=== PATIENT | male | born 1975 | race Caucasian/White ===

== ENCOUNTER 2018-08-07 12:52 | Inpatient (IN) | payer MEDICAID ==
[~2018-08-07] VITALS: Ht 170.2 cm; Wt 87.2 kg
[2018-08-07] MEDS ORDERED: SODIUM CHLORIDE 0.9% 1L BAG IV* STA ×2 (13:07)
[2018-08-07] MEDS ORDERED: CEFTRIAXONE 1 GM/50 ML (PMX) 50 ML IVPB STA (13:07)
[2018-08-07] MEDS ORDERED: ACETAMINOPHEN 500 MG TAB PO STA (13:08)
--- NOTE | 2018-08-07 14:57 | ERD ---
ER Documentation Chief Complaint Chief Complaint FEVER, BODYACHES, DIARRHEA, NAUSEA, PAIN WITH URINATION X2 DAYS HPI 43-year-old male presents the emergency department complaining of fevers, chills, difficulty urinating. Patient states that for the last 2 days has had the above symptoms. He has had dysuria and urinary frequency associated with a nonspecific abdominal pain. He had occasional loose stool and diarrhea but no blood in his stool. He has a lower abdominal discomfort associated with the symptoms. Today he felt like he had a fever, weakness and body aches and came to the emergency room for evaluation. ROS All systems reviewed and are negative except as per history of present illness. Medications Home Meds No Active Prescriptions or Reported Meds Allergies Allergies: Coded Allergies: No Known Allergy (Unverified , 08/07/18) PMhx/Soc Medical and Surgical Hx: pt denies Medical Hx, pt denies Surgical Hx Hx Alcohol Use: No Hx Substance Use: No Hx Tobacco Use: No Smoking Status: Never smoker FmHx Noncontributory for chief complaint Physical Exam Vitals Vital Signs Date Temp Pulse Resp B/P (MAP) Pulse Ox O2 O2 Flow FiO2 Time Delivery Rate 08/07/18 102.1 134 19 156/96 99 12:59 (116) Physical Exam GENERAL: Ill-appearing male no CVA tenderness HEENT: Pupils equal, round, and reactive to light. EOMI. There is no scleral icterus. NECK: C-spine is soft and supple, there is no meningismus. There is no cervical lymphadenopathy. LUNGS: Clear to auscultation bilaterally. There are no rales, wheezes or rh onchi. HEART: Regular rate and rhythm, no murmurs, clicks, rubs or gallops. ABDOMEN: Soft, non-tender, non-distended. There are bowel sounds in all four quadrants. No rebound or guarding. No CVA tenderness EXTREMITIES: There is no peripheral cyanosis or edema. No focal swelling or erythema. NEURO: The patient moves all four extremities with 5/5 strength. Cranial nerves II - XII are intact. Normal gait. Alert and oriented SKIN: There is no apparent rash or petechiae. HEME/LYMPHATIC: There is no evidence of excessive bruising or lymphedema. PSYCHIATRIC: The patient does not appear anxious or depressed. Result Diagram: 08/07/18 1314 08/07/18 1314 Results 24 hrs Laboratory Tests Test 08/07/18 13:14 08/07/18 13:16 White Blood Count 11.8 10^3/ul Red Blood Count 5.33 10^6/ul Hemoglobin 15.0 g/dl Hematocrit 44.5 % Mean Corpuscular Volume 83.5 fl Mean Corpuscular Hemoglobin 28.1 pg Mean Corpuscular Hemoglobin Concent 33.7 g/dl Red Cell Distribution Width 12.7 % Platelet Count 290 10^3/UL Mean Platelet Volume 9.7 fl Immature Granulocytes % 0.700 % Neutrophils % 80.2 % Lymphocytes % 6.7 % Monocytes % 11.8 % Eosinophils % 0.1 % Basophils % 0.5 % Nucleated Red Blood Cells % 0.0 /100WBC Immature Granulocytes # 0.080 10^3/ul Neutrophils # 9.4 10^3/ul Lymphocytes # 0.8 10^3/ul Monocytes # 1.4 10^3/ul Eosinophils # 0.0 10^3/ul Basophils # 0.1 10^3/ul Nucleated Red Blood Cells # 0.0 10^3/ul Prothrombin Time 13.8 Sec Prothrombin Time Ratio 1.1 INR International Normalized Ratio 1.05 Activated Partial Thromboplast Time 29.1 Sec Urine Color ELVIA Urine Clarity CLOUDY Urine pH 6.0 Urine Specific [place] 1.018 Urine Ketones NEGATIVE mg/dL Urine Nitrite NEGATIVE mg/dL Urine Bilirubin NEGATIVE mg/dL Urine Urobilinogen NEGATIVE mg/dL Urine Leukocyte Esterase 3+ Lillian/ul Urine Microscopic RBC > 182 /HPF Urine Microscopic WBC > 182 /HPF Urine Transitional Epithelial Cells FEW /HPF Urine Bacteria FEW /HPF Urine Mucus FEW /HPF Urine Hemoglobin 3+ mg/dL Urine Glucose NEGATIVE mg/dL Urine Total Protein 2+ mg/dl Sodium Level 141 mmol/L Potassium Level 4.1 mmol/L Chloride Level 102 mmol/L Carbon Dioxide Level 25 mmol/L Anion Gap 14 Blood Urea Nitrogen 11 mg/dl Creatinine 0.94 mg/dl Est Glomerular Filtrat Rate mL/min > 60 mL/min Glucose Level 131 mg/dl Calcium Level 9.7 mg/dl Total Bilirubin 0.7 mg/dl Direct Bilirubin 0.00 mg/dl Indirect Bilirubin 0.7 mg/dl Aspartate Amino Transf (AST/SGOT) 209 IU/L Alanine Aminotransferase (ALT/SGPT) 468 IU/L Alkaline Phosphatase 130 IU/L Troponin I < 0.012 ng/ml Total Protein 8.2 g/dl Albumin 4.6 g/dl Globulin 3.60 g/dl Albumin/Globulin Ratio 1.27 POC Venous Lactate 1.5 mmol/L Current Medications Medications Dose Sig/Karla Start Time Status Last (Trade) Ordered Route PRN Stop Time Admin Dose Reason Admin Sodium 2,620 ml BOLUS OVER 2 08/07/18 DC 08/07/18 Chloride HOURS STAT 13:07 13:25 (NS) IV* 08/07/18 13:08 Sodium 1,980 ml BOLUS OVER 2 08/07/18 DC Chloride HOURS STAT 13:07 (NS) IV* 08/07/18 13:08 Ceftriaxone 50 ml @ ONCE STAT 08/07/18 DC 08/07/18 Sodium 100 mls/hr IVPB 13:07 13:22 08/07/18 13:36 1,000 mg ONCE STAT 08/07/18 DC 08/07/18 Acetaminophen PO 13:08 13:22 (Tylenol 08/07/18 13:09 Tab) Procedures/MDM Patient was taken to a room, seen and evaluated. Comfort measures were initiated. Diagnostic tests were ordered and reviewed. 3 LEAD RHYTHM STRIP: Sinus tachycardia EK lead EKG reviewed by myself: Sinus tachycardia Normal [place] and intervals No ST elevation, depression, or T wave inversion Impression: Normal EKG RADIOLOGY: Reviewed with the radiologist CONSULTATION: Hospitalist was notified for admission Dr. Patel was consulted as a urologist REEVALUATION: 1500: Diagnostic tests were appreciated. Patient had much improvement with fluids and antibiotics. Serial examinations of his abdomen remained benign. MEDICAL DECISION MAKIN-year-old male presents with a urinary tract inf ection. This appears to be related to an underlying urologic abnormality including a likely passed kidney stone. Although the patient's lactate is less than 2 and he does not appear to be severely septic, I believe this is a high risk infection. Patient will be admitted for IV fluids, IV antibiotics and further supportive measures. Departure Diagnosis: Primary Impression: Urinary tract infection Condition: ZAHRAA Tidwell Aug 07, 2018 14:57
[2018-08-07] MEDS ORDERED: ONDANSETRON 4 MG INJ IV PRN (15:00)
--- NOTE | 2018-08-07 15:58 | HP ---
Date/Time of Note Date/Time of Note DATE: 08/07/18 TIME: 15:42 Assessment/Plan VTE Prophylaxis SCD applied (from Nsg): Yes Pharmacological prophylaxis: NA/contraindicated Pharm contraindication: low risk/ambulating Lines/Catheters IV Catheter Type (from Nrsg): Saline Lock Assessment/Plan Assessment/Plan 43 yo man no PMH presents with UTI #UTI - Dysuria and leuk esterase on UA. - Very low risk of drug resistance. No recent hospital exposure or antibiotics. - Ceftriaxone IV for now. - CT negative for structural abnormalities. No crystals on UA. - If improved tomorrow, discharge on levofloxacin. Otherwise wait for urine culture. DVT: SCDs GI: None Result Diagram: 08/07/18 1314 08/07/18 1314 HPI/ROS Admit Date/Time Admit Date/Time 07 August 2018 Hx of Present Illness Mr. Denton Grover is a 43 yo man no PMH who presents with dysuria and diarrhea. He was in his usual state of health until Wednesday (3 days [employer]) when he developed dysuria. Described a burning sensation running down the middle of his penis with the urine stream. Also complains of "oily urine" which may be pyuria. Since then has had fevers, night sweats, and anorexia. Mild nausea. No vomiting. He denies recent hospitalization or other health care exposure; recent antibiotics. No history of kidney stones. Never had a urologic procedure. In the ED he was febrile to 102.1, P 130s, BP 156/96. WBC 11.8. CT abdomen shows R hydronephrosis and R perinephric fat stranding. ROS Denies recent fatigue, weight loss, headache, vision changes, dizziness, dysphagia, neck pain/stiffness, dyspnea, cough, chest pain/pressure/palpitations, vomiting, constipation, melena, hematochezia. PMH/Family/Social Past Medical History Medical History: no pertinent history Medications Current Medications Ondansetron HCl (Zofran Inj) 4 mg BRIDGE ORDER PRN IV NAUSEA/VOMITING; Start 08/07/18 at 15:00; Stop 08/08/18 at 14:59 Acetaminophen (Tylenol Tab) 650 mg ER BRIDGE PRN PO .MILD PAIN 1-3 OR TEMP; Start 08/07/18 at 15:00; Stop 08/08/18 at 14:59 Sodium Chloride 1,000 ml @ 75 mls/hr [id number] IV ; Start 08/07/18 at 15:39; Status UNV IV Flush (NS 3 ml) 3 ml PER PROTOCOL IV ; Start 08/07/18 at 16:00; Status UNV Acetaminophen (Tylenol Tab) 650 mg Q6H PRN PO .PAIN 1-3 OR TEMP; Start 08/07/18 at 16:00; Status UNV Coded Allergies: No Known Allergy (Unverified , 08/07/18) Past Surgical History Past Surgical Hx: no surgical history Family History Significant Family History: no pertinent family hx Social History Works as a screenprinter. Alcohol Use: none Smoking Status: Never smoker Drug Use: none Exam/Review of Systems Vital Signs Vitals Vital Signs Date Temp Pulse Resp B/P (MAP) Pulse Ox O2 O2 Flow FiO2 Time Delivery Rate 08/07/18 102.1 134 19 156/96 99 12:59 (116) Exam Exam Gen: Obese man, supine in gurney comfortable appearing. Eyes: PERRL, no icterus. HEENT: Moist mucous membranes, clear oropharynx Neck: Supple, no lymphadenopathy or masses. Card: Regular rate and rhythm, very mild 1/6 systolic ejection murmur. Pulm: Clear to auscultation bilaterally Abd: Soft, nontender throughout, nondistended. No hepatosplenomegaly. No CVA tenderness. Ext: No cyanosis/clubbing/edema Skin: warm, dry, well perfused. GEORGIANA MATHEWS MD Aug 07, 2018 15:58
[2018-08-07] MEDS ORDERED: NACL 0.9% 3 ML SYG IV SCH (16:00)
[2018-08-07 20:00] VITALS: BP 137/90; PULSE 104; RESP 18
[2018-08-07] MEDS: ACETAMINOPHEN 325 MG TAB PO PRN (20:52)
[2018-08-07] MEDS: SOD CHLORIDE 0.9% 1,000 ML IV SCH (20:53)
[2018-08-07 21:21] VITALS: Ht 170.2 cm; Wt 87.2 kg
[2018-08-08 02:04] VITALS: BP 148/89; PULSE 101; RESP 18
[2018-08-08] MEDS: ACETAMINOPHEN 325 MG TAB PO PRN ×3 (02:28→22:05)
[2018-08-08] MEDS: morphine 2 MG INJ IV PRN ×3 (07:35→20:15)
[2018-08-08 08:00] VITALS: BP 156/93; PULSE 98; RESP 18
[2018-08-08] MEDS: SOD CHLORIDE 0.9% 1,000 ML IV SCH ×2 (09:38→18:19)
[2018-08-08] MEDS: CEFTRIAXONE 1 GM/50 ML (PMX) 50 ML IVPB SCH (11:50)
[2018-08-08 14:00] VITALS: BP 176/99; PULSE 111; RESP 19
[2018-08-08] MEDS ORDERED: hydrALAzine 20 MG INJ IV PRN ×2 (15:00→19:00)
[2018-08-08 15:34] VITALS: BP 166/101; RESP 18
[2018-08-08] MEDS ORDERED: POTASSIUM PHOSPHATE 20 MEQ in SOD CHLORIDE 0.9% 250 ML IVPB ONE (17:00)
--- NOTE | 2018-08-08 17:03 | PN ---
Date/Time of Note Date/Time of Note DATE: 08/08/18 TIME: 17:01 Assessment/Plan VTE Prophylaxis Risk score (from Ns)>0 risk: 2 SCD applied (from Ns): Yes Pharmacological prophylaxis: other Lines/Catheters IV Catheter Type (from Nrs): Peripheral IV Assessment/Plan Hospital Course S: Patient still complaining of some dysuria and generalized pain. Had a low- grade temperature earlier today as well. O: VS -see below PE: Gen: Lying in bed, slightly lethargic Eyes: PERRL, no icterus. HEENT: Moist mucous membranes, clear oropharynx Neck: Supple, no lymphadenopathy or masses. Card: Regular rate and rhythm, very mild 1/6 systolic ejection murmur. Pulm: Clear to auscultation bilaterally Abd: Soft, nontender throughout, nondistended. No hepatosplenomegaly. No CVA tenderness. Ext: No cyanosis/clubbing/edema Assessment/Plan: 43 yo man no PMH presents with UTI #UTI-patient still with dysuria and again presented with positive leuk esterase on UA. Urine culture preliminarily positive for gram-negative rods, as well as 1 out of 2 blood cultures- CT negative for structural abnormalities. No crystals on UA. -For now continue ceftriaxone IV for now. -Follow-up final urine and blood culture results DVT: SCDs GI: None Result Diagram: 08/08/18 0722 08/08/18 0722 Results 24hrs Laboratory Tests Test 08/07/18 20:57 08/08/18 07:22 Lactic Acid Level 1.2 White Blood Count 10.7 Red Blood Count 4.73 Hemoglobin 13.6 L Hematocrit 40.3 L Mean Corpuscular Volume 85.2 Mean Corpuscular Hemoglobin 28.8 L Mean Corpuscular Hemoglobin Concent 33.7 Red Cell Distribution Width 12.8 Platelet Count 234 Mean Platelet Volume 10.3 Immature Granulocytes % 0.500 H Neutrophils % 85.3 H Lymphocytes % 4.8 L Monocytes % 9.0 Eosinophils % 0.0 Basophils % 0.4 Nucleated Red Blood Cells % 0.0 Immature Granulocytes # 0.050 H Neutrophils # 9.1 H Lymphocytes # 0.5 L Monocytes # 1.0 H Eosinophils # 0.0 Basophils # 0.0 Nucleated Red Blood Cells # 0.0 Sodium Level 143 Potassium Level 3.8 Chloride Level 104 Carbon Dioxide Level 27 Anion Gap 12 Blood Urea Nitrogen 9 Creatinine 0.82 Est Glomerular Filtrat Rate mL/min > 60 Glucose Level 120 Hemoglobin A1c 5.0 Calcium Level 8.9 Phosphorus Level 2.4 L Magnesium Level 2.0 Total Bilirubin 0.6 Direct Bilirubin 0.00 Indirect Bilirubin 0.6 Aspartate Amino Transf (AST/SGOT) 100 #H Alanine Aminotransferase (ALT/SGPT) 288 H Alkaline Phosphatase 108 Total Protein 6.8 # Albumin 3.5 # Globulin 3.30 H Albumin/Globulin Ratio 1.06 Thyroid Stimulating Hormone (TSH) 0.489 Exam/Review of Systems Exam Vitals Vital Signs Date Temp Pulse Resp B/P (MAP) Pulse Ox O2 O2 Flow FiO2 Time Delivery Rate 08/08/18 98.7 18 166/101 97 Room Air 15:34 (122) 08/08/18 111 14:00 Intake and Output 08/07/18 08/07/18 08/08/18 1515:00 23:00 07:00 IntakeIntake Total 1080 ml OutputOutput Total 600 ml BalanceBalance 480 ml Results Results 24hrs Laboratory Tests Test 08/07/18 20:57 08/08/18 07:22 Lactic Acid Level 1.2 White Blood Count 10.7 Red Blood Count 4.73 Hemoglobin 13.6 L Hematocrit 40.3 L Mean Corpuscular Volume 85.2 Mean Corpuscular Hemoglobin 28.8 L Mean Corpuscular Hemoglobin Concent 33.7 Red Cell Distribution Width 12.8 Platelet Count 234 Mean Platelet Volume 10.3 Immature Granulocytes % 0.500 H Neutrophils % 85.3 H Lymphocytes % 4.8 L Monocytes % 9.0 Eosinophils % 0.0 Basophils % 0.4 Nucleated Red Blood Cells % 0.0 Immature Granulocytes # 0.050 H Neutrophils # 9.1 H Lymphocytes # 0.5 L Monocytes # 1.0 H Eosinophils # 0.0 Basophils # 0.0 Nucleated Red Blood Cells # 0.0 Sodium Level 143 Potassium Level 3.8 Chloride Level 104 Carbon Dioxide Level 27 Anion Gap 12 Blood Urea Nitrogen 9 Creatinine 0.82 Est Glomerular Filtrat Rate mL/min > 60 Glucose Level 120 Hemoglobin A1c 5.0 Calcium Level 8.9 Phosphorus Level 2.4 L Magnesium Level 2.0 Total Bilirubin 0.6 Direct Bilirubin 0.00 Indirect Bilirubin 0.6 Aspartate Amino Transf (AST/SGOT) 100 #H Alanine Aminotransferase (ALT/SGPT) 288 H Alkaline Phosphatase 108 Total Protein 6.8 # Albumin 3.5 # Globulin 3.30 H Albumin/Globulin Ratio 1.06 Thyroid Stimulating Hormone (TSH) 0.489 Medications Medication Current Medications Sodium Chloride 1,000 ml @ 75 mls/hr [id number] IV Last administered on 08/08/18at 09:38; Admin Dose 75 MLS/HR; Start 08/07/18 at 15:39 IV Flush (NS 3 ml) 3 ml PER PROTOCOL IV ; Start 08/07/18 at 16:00 Acetaminophen (Tylenol Tab) 650 mg Q6H PRN PO .PAIN 1-3 OR TEMP Last administered on 08/08/18at 02:28; Admin Dose 650 MG; Start 08/07/18 at 16:00 Ceftriaxone Sodium 50 ml @ 100 mls/hr Q24H IVPB Last administered on 08/08/18at 11:50; Admin Dose 100 MLS/HR; Start 08/08/18 at 12:00 Morphine Sulfate (morphine) 2 mg Q4H PRN IV SEVERE PAIN LEVEL 7-10 Last administered on 08/08/18at 11:50; Admin Dose 2 MG; Start 08/08/18 at 03:30 Potassium Phosphate 20 meq/ Sodium Chloride 254.5455 ml @ 63.636 m... ONCE ONCE IVPB ; Start 08/08/18 at 17:00; Stop 08/08/18 at 20:59 Hydralazine HCl (Apresoline) 10 mg Q4H PRN IV ELEVATED BLOOD PRESSURE; Start 08/08/18 at 19:00; Status DONNY WHITTINGTON Aug 08, 2018 17:03
[2018-08-08 18:00] VITALS: BP 155/98; PULSE 91; RESP 20
[2018-08-08 19:35] VITALS: BP 163/86; PULSE 95; RESP 16
[2018-08-09 02:03] VITALS: BP 108/67; PULSE 90; RESP 17
[2018-08-09] MEDS: SOD CHLORIDE 0.9% 1,000 ML IV SCH ×2 (02:36→21:02)
[2018-08-09 08:04] VITALS: BP 164/103; PULSE 89; RESP 17
[2018-08-09] MEDS: ACETAMINOPHEN 325 MG TAB PO PRN ×2 (11:05→21:02)
[2018-08-09] MEDS: CEFTRIAXONE 1 GM/50 ML (PMX) 50 ML IVPB SCH (11:06)
--- NOTE | 2018-08-09 13:16 | PN ---
Date/Time of Note Date/Time of Note DATE: 08/09/18 TIME: 13:15 Assessment/Plan VTE Prophylaxis Risk score (from Ns)>0 risk: 2 SCD applied (from Ns): Yes Pharmacological prophylaxis: other Lines/Catheters IV Catheter Type (from Nrsg): Peripheral IV Assessment/Plan Hospital Course S: Patient more awake and alert today, per nursing staff. Tolerating diet. No fevers overnight. O: VS -see below PE: Gen: Lying in bed, less lethargic Eyes: PERRL, no icterus. HEENT: Moist mucous membranes, clear oropharynx Neck: Supple, no lymphadenopathy or masses. Card: Regular rate and rhythm, very mild 1/6 systolic ejection murmur. Pulm: Clear to auscultation bilaterally Abd: Soft, nontender throughout, nondistended. No hepatosplenomegaly. No CVA tenderness. Ext: No cyanosis/clubbing/edema Assessment/Plan: 43 yo man no PMH presents with UTI #UTI-patient still with dysuria and again presented with positive leuk esterase on UA. Urine culture positive for> 100,000 E coli CFU's, as well as 1 out of 2 blood cultures for gram (-) rods). CT negative for structural abnormalities. No crystals on UA. -For now continue ceftriaxone IV for now. -Follow-up final blood culture results DVT: SCDs GI: None Result Diagram: 08/08/1872108/08/18 0722 Exam/Review of Systems Exam Vitals Vital Signs Date Temp Pulse Resp B/P (MAP) Pulse Ox O2 O2 Flow FiO2 Time Delivery Rate 08/09/18 98.0 89 17 164/103 97 Room Air 08:04 (123) Intake and Output 08/08/18 08/08/18 08/09/18 1515:00 23:00 07:00 IntakeIntake Total 400 ml 1981.5455 ml 653 ml OutputOutput Total 1300 ml BalanceBalance 400 ml 681.5455 ml 653 ml Medications Medication Current Medications Sodium Chloride 1,000 ml @ 75 mls/hr [id number] IV Last administered on 08/09/18at 02:36; Admin Dose 75 MLS/HR; Start 08/07/18 at 15:39 IV Flush (NS 3 ml) 3 ml PER PROTOCOL IV ; Start 08/07/18 at 16:00 Acetaminophen (Tylenol Tab) 650 mg Q6H PRN PO .PAIN 1-3 OR TEMP Last administered on 08/09/18 11:05; Admin Dose 650 MG; Start 08/07/18 at 16:00 Ceftriaxone Sodium 50 ml @ 100 mls/hr Q24H IVPB Last administered on 08/09/18 11:06; Admin Dose 100 MLS/HR; Start 08/08/18 at 12:00 Morphine Sulfate (morphine) 2 mg Q4H PRN IV SEVERE PAIN LEVEL 7-10 Last administered on 08/08/18at 20:15; Admin Dose 2 MG; Start 08/08/18 at 03:30 Hydralazine HCl (Apresoline) 10 mg Q4H PRN IV ELEVATED BLOOD PRESSURE; Start 08/08/18 at 19:00 Potassium Phosphate 20 meq/ Sodium Chloride 254.5455 ml @ 63.636 m... ONCE ONCE IVPB ; Start 08/09/18 at 13:30; Stop 08/09/18 at 17:29; Status DONNY WHITTINGTON Aug 09, 2018 13:16
[2018-08-09 14:11] VITALS: BP 150/92; PULSE 95; RESP 19
[2018-08-09] MEDS ORDERED: POTASSIUM PHOSPHATE 20 MEQ in SOD CHLORIDE 0.9% 250 ML IVPB ONE (15:00)
[2018-08-09 19:48] VITALS: BP 152/94; PULSE 96; RESP 17
[2018-08-10 02:30] VITALS: BP 134/92; PULSE 86; RESP 18
[2018-08-10 07:49] VITALS: BP 141/99; PULSE 94; RESP 16
[2018-08-10] MEDS: SOD CHLORIDE 0.9% 1,000 ML IV SCH (11:55)
[2018-08-10] MEDS: CEFTRIAXONE 1 GM/50 ML (PMX) 50 ML IVPB SCH (11:55)
[2018-08-10] MEDS: ACETAMINOPHEN 325 MG TAB PO PRN (14:16)
[2018-08-10 14:25] VITALS: BP 136/85; PULSE 88; RESP 16
--- NOTE | 2018-08-10 15:01 | PDOCDIS ---
Discharge Instructions CONDITION [id number] Patient Condition: [id number] Stable HOME CARE INSTRUCTIONS: [id number] Diet Instructions: [id number] Low Fat /Cholesterol ACTIVITY: [id number] Activity Restrictions: Bways0f Slowly Increase Activity Rest between Activity Avoid heavy lifting FOLLOW UP/APPOINTMENTS Follow-up Plan Please take your medications as prescribed, see your doctor in the clinic in the next 1 week. DONNY JADE Aug 10, 2018 15:01
[2018-08-10] MEDS ORDERED: LEVO750T8 PO (15:03)
--- NOTE | 2018-08-10 15:08 | DS ---
Date/Time of Note Date/Time of Note DATE: 08/10/18 TIME: 15:06 Discharge Summary Admission/Discharge Info Admit Date/Time Aug 07, 2018 at 14:58 Discharge Date/Time Discharge Diagnosis #UTI-secondary to E. coli infection improving on antibiotics #Bacteremia: Secondary to E. coli infection, improving on antibiotics Patient Condition: Stable Hx of Present Illness 43 yo man no PMH who presents with dysuria and diarrhea. He was in his usual state of health until Wednesday (3 days [employer]ILY [employer] WORK[employer]) when he developed dysuria. Described a burning sensation running down the middle of his penis with the urine stream. Also complains of "oily urine" which may be pyuria. Since then has had fevers, night sweats, and anorexia. Mild nausea. No vomiting. He denies recent hospitalization or other health care exposure; recent antibiotics. No history of kidney stones. Never had a urologic procedure. In the ED he was febrile to 102.1, P 130s, BP 156/96. WBC 11.8. CT abdomen shows R hydronephrosis and R perinephric fat stranding. Hospital Course Patient was admitted and found with E. coli urinary tract infection and E. coli bacteremia. Patient had fever as well on admission. Patient was placed on IV antibiotics. Over the course of his hospital stay his symptoms slowly improved. His white count was also elevated on admission but this was normal at a time of discharge. Fever subsided. He became more energetic and more awake and alert. He was able to tolerate diet and vital signs are stable on day of discharge. Because the infection is both in the urine and in the blood, we are recommending antibiotics for 10 more days and we will prescribe that to him and he will be discharged home today with strict instructions about the importance of adhering to these antibiotic regimen, he will go home today in improved condition. See below for full list of discharge medications. Home Meds Active Scripts Levofloxacin* (Levofloxacin*) 750 Mg Tablet, 750 MG PO DAILY for 10 Days, #10 TAB Prov:DONNY JADE 08/10/18 Follow-up Plan Please take your medications as prescribed, see your doctor in the clinic in the next 1 week. Primary Care Provider Care Physician No Primary Time spent on discharge: > 30 minutes DONNY JADE Aug 10, 2018 15:08
== END 2018-08-10 17:45 | disposition home or self-care (01) | DRG 872 ==
LOC: E/R 12:52 → PP2 14:58
PROVIDERS: ADMIT Internal Medicine; ATTEND Hospitalist
DX: A41.9 Sepsis, unspecified organism (principal); N39.0 Urinary tract infection, site not specified; B96.20 Unspecified Escherichia coli [E. coli] as the cause of diseases classified elsewhere; R19.7 Diarrhea, unspecified
CPT/HCPCS: 36415; 71045; 74176; 80048; 80053; 80076; 81001; 83036; 83605; 83735; 84100; 84443; 84484; 85025; 85610; 85730; 87086; 93005; 96374; J0360; J0696; J2270; J7030; J7050